=== PATIENT | male | born 2005 | race Caucasian/White ===

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

== ENCOUNTER 2025-03-23 13:16 | Emergency (ER) | payer OTHER, SELFPAY ==
[2025-03-23] MEDS ORDERED: LIDOCAINE 2% W/EPI 1:200,000 MPF 20 ML VIAL IM ONE (13:31)
--- NOTE | 2025-03-23 13:56 | EDPHYS ---
Physician Documentation [facility] Name: Newton Cervantes Age: 19 yrs Sex: Male : 2005 Arrival Date: 03/23/2025 Time: 13:16 Bed 6 Private MD: ED Physician Mir Galarza HPI: 03/23 16:31 This 19 yrs old Male presents to ER via Ambulatory with complaints of Laceration. rt 16:31 Patient presents to the ED with a laceration, reported syncopal event. Patient was rt fishing, the feeling of slipped, cutting his left wrist. At the site of blood, he passed out briefly hitting his head causing laceration just beneath the left eyebrow. Patient denies any ongoing symptoms including headache, dizziness. Denies other acute complaints at this time, symptoms are moderate in severity, no other aggravating or alleviating factors.. Historical: - Allergies: 13:19 PENICILLINS; jl7 - Home Meds: 13:19 None [Active]; jl7 - PMHx: 13:19 None; jl7 - PSHx: 13:19 None; jl7 - Immunization history:: Adult Immunizations unknown. - Infectious Disease History:: Denies. - Social history:: Smoking status: Reported history of juuling and/or vaping. - Family history:: not pertinent. ROS: 16:36 Constitutional: Negative for fever, chills, and weight loss, Cardiovascular: Negative rt for chest pain, palpitations, and edema, Respiratory: Negative for shortness of breath, cough, wheezing, and pleuritic chest pain, Abdomen/GI: Negative for abdominal pain, nausea, vomiting, diarrhea, and constipation, Neuro: Negative for headache, weakness, numbness, tingling, and seizure, 16:36 Skin: Positive for laceration(s), 16:36 Neuro: Positive for syncope, Negative for headache, Exam: 16:36 Constitutional: This is a well developed, well nourished patient who is awake, alert, rt and in no acute distress. Chest/axilla: Normal chest wall appearance and motion. Nontender with no deformity. No lesions are appreciated. Cardiovascular: Regular rate and rhythm with a normal S1 and S2. No gallops, murmurs, or rubs. Normal PMI, no JVD. No pulse deficits. Respiratory: Lungs have equal breath sounds bilaterally, clear to auscultation and percussion. No rales, rhonchi or wheezes noted. No increased work of breathing, no retractions or nasal flaring. Abdomen/GI: Soft, non-tender, with normal bowel sounds. No distension or tympany. No guarding or rebound. No evidence of tenderness throughout. Neuro: Awake and alert, GCS 15, oriented to person, place, time, and situation. Cranial nerves II-XII grossly intact. Motor strength 5/5 in all extremities. Sensory grossly intact. Cerebellar exam normal. Normal gait. 16:36 Head/face: 2 cm laceration horizontally oriented under the left eyebrow, no active bleeding, superficial. 16:36 ECG was reviewed by the Attending Physician. 16:36 Musculoskeletal/extremity: Tiny, less than half centimeter laceration to the left wrist just radial to midline, no active bleeding, appears to be superficial without any deeper structures involved, Rocky test is normal. Vital Signs: 13:18 BP 133 / 59; Pulse 79; Resp 15; Temp 97; Pulse Ox 100% ; Weight 74.84 kg; Height 6 ft. jl7 0 in. ; Pain 0/10; 14:31 BP 111 / 63; Pulse 68; Resp 17; Pulse Ox 99% on R/A; ap3 13:18 Body Mass Index 22.38 (74.84 kg, 182.88 cm) jl7 13:18 Pain Scale: Adult jl7 Laceration: 16:36 Wound Repair of 2cm ( 0.8in ) subcutaneous laceration to Just beneath the left eyebrow. rt Linear shaped.. Distal neuro/vascular/tendon intact. Anesthesia: Wound infiltrated with 2 mls of 1% lidocaine w/ Epi. Wound prep: Copious irrigation. Skin closed with 3 5-0 Prolene using simple sutures and sterile technique. Patient tolerated well. MDM: 13:18 Medical Screening Exam initiated wayne 16:36 Differential Diagnosis Vasovagal syncope, dysrhythmia, laceration. Data reviewed: vital rt signs, nurses notes, EKG. Test considered but Not performed: CT: Discussed getting a CT with the patient, states that he does not wish to have a CT performed. He has his baseline mental status, reportedly only fell from a seated position. Denies any headache.. Counseling: I had a detailed discussion with the patient and/or guardian regarding the historical points, exam findings, and any diagnostic results supporting the discharge/admit diagnosis, the need for outpatient follow up, to return to the emergency department if symptoms worsen or persist or if there are any questions or concerns that arise at home. Response to treatment: the patient's symptoms have markedly improved after treatment. 03/23 13:19 Order name: EKG; Complete Time: 13:19 rt 03/23 13:19 Order name: EKG - Nurse/Tech; Complete Time: 13:38 rt 03/23 13:19 Order name: Dressing - Wound; Complete Time: 14:05 rt 03/23 13:19 Order name: Gloves, Sterile; Complete Time: 13:38 rt 03/23 13:19 Order name: Setup Suture Tray; Complete Time: 13:38 rt EC:36 Rate is 76 beats/min. Rhythm is regular, Normal Sinus Rhythm with No ectopy. QRS [place] rt is Normal. RI interval is normal. QRS interval is normal. QT interval is normal. No Q waves. T waves are Normal. No ST changes noted. Interpreted by me. Administered Medications: 14:06 Drug: Lidocaine-Epinephrine Infiltration -1%: (1:100,000) 5 ml 20 ml Infiltration once; hb to bedside Volume: 20 ml; Route: Infiltration; Disposition Summary: 03/23/25 13:56 Discharge Ordered Notes: Location: Home rt Problem: new rt Symptoms: have improved rt Condition: Stable rt Diagnosis - Vasovagal syncope rt - Facial laceration rt - Laceration of left wrist rt Followup: rt - With: Private Physician - When: 7 - 10 days - Reason: Staple/Suture removal Discharge Instructions: - Discharge Summary Sheet rt - Facial Laceration rt - Syncope rt Forms: - Medication Reconciliation Form rt - Antibiotic Education rt - Prescription Opioid Use rt - Patient Portal Instructions rt - Leadership Thank You Letter rt Prescriptions: - Doxycycline Hyclate 100 mg Oral Tablet - take 1 tablet ORAL route once daily; 10 tablet; Refills: 0, Product Selection rt Permitted Signatures: Sunday Decker MD MD cha Baxter, Heather RN RN Mago Carrasquillo RN RN jl7 Mir Galarza MD MD rt
--- NOTE | 2025-03-23 13:56 | ER ---
Nurse's Notes [facility] Name: Nweton Cervantes Age: 19 yrs Sex: Male : 2005 Arrival Date: 03/23/2025 Time: 13:16 Bed 6 Private MD: Diagnosis: Vasovagal syncope;Facial laceration;Laceration of left wrist Presentation: 03/23 13:18 Chief complaint: EMS states: Toned out for laceration to left eyebrow post fall and jl7 left wrist. Coronavirus screen: At this time, the client does not indicate any symptoms associated with coronavirus-19. Ebola Screen: No symptoms or risks identified at this time. Complicating Factors: There are no complicating factors for this patient. Initial Sepsis Screen: Does the patient meet any 2 criteria? No. Patient's initial sepsis screen is negative. Does the patient have a suspected source of infection? No. Patient's initial sepsis screen is negative. Risk Assessment: Do you want to hurt yourself or someone else? Patient reports no desire to harm self or others. Onset of symptoms was March 23, 2025. 13:18 Method Of Arrival: Ambulatory jl7 13:18 Acuity: VIVIANA 3 jl7 Triage Assessment: 13:19 General: Appears in no apparent distress. uncomfortable, Behavior is calm, cooperative, jl7 appropriate for age. Pain: Denies pain. Injury Description: Laceration sustained to left eye. Historical: - Allergies: 13:19 PENICILLINS; jl7 - Home Meds: 13:19 None [Active]; jl7 - PMHx: 13:19 None; jl7 - PSHx: 13:19 None; jl7 - Immunization history:: Adult Immunizations unknown. - Infectious Disease History:: Denies. - Social history:: Smoking status: Reported history of juuling and/or vaping. - Family history:: not pertinent. Screenin:31 [facility] ED Fall Risk Assessment (Adult) History of falling in the last 3 months, ap3 including since admission Yes- single mechanical fall (1 pt) Confusion or Disorientation No (0 pts) Intoxicated or Sedated No (0 pts) Impaired Gait No (0 pts) Mobility Assist Device Used No (0 pt) Altered Elimination No (0 pt) Score/Fall Risk Level 0 - 2 = Low Risk Oriented to surroundings, Maintained a safe environment, Educated pt \T\ family on fall prevention, incl call for assistance when getting out of bed, Assessed \T\ reinforced patient's understanding of fall precautions, Hourly rounding (assess needs \T\ fall precautionary measures) done, Used ambulatory aids as needed (educated on \T\ assisted with). Abuse screen: Denies threats or abuse. Nutritional screening: No deficits noted. Tuberculosis screening: No symptoms or risk factors identified. Assessment: 14:32 Injury Description: Laceration sustained to left eye and left wrist is. ap3 14:33 Musculoskeletal: Range of motion: intact in all extremities. ap3 Vital Signs: 13:18 BP 133 / 59; Pulse 79; Resp 15; Temp 97; Pulse Ox 100% ; Weight 74.84 kg; Height 6 ft. jl7 0 in. ; Pain 0/10; 14:31 BP 111 / 63; Pulse 68; Resp 17; Pulse Ox 99% on R/A; ap3 13:18 Body Mass Index 22.38 (74.84 kg, 182.88 cm) jl7 13:18 Pain Scale: Adult jl7 ED Course: 13:17 Patient arrived in ED. jl7 13:18 Sunday Decker MD is Attending Physician. wayne 13:18 Attending Physician role handed off by Sunday Decker MD rt 13:18 Mir Galarza MD is Attending Physician. rt 13:19 Triage completed. jl7 13:19 Arm band placed on right wrist. jl7 13:30 EKG done, by ED staff, reviewed by Mir Galarza MD. hb 14:32 No provider procedures requiring assistance completed. Patient did not have IV access ap3 during this emergency room visit. 14:33 Patient has correct armband on for positive identification. Adult w/ patient. Provided ap3 Education on: wound care education . Administered Medications: 14:06 Drug: Lidocaine-Epinephrine Infiltration -1%: (1:100,000) 5 ml 20 ml Infiltration once; hb to bedside Volume: 20 ml; Route: Infiltration; Medication: 14:33 VIS not applicable for this client. ap3 Outcome: 13:56 Discharge ordered by MD. rt 14:32 Discharged to home ambulatory, with family, ap3 14:32 Condition: good 14:32 Discharge instructions given to patient, family, Instructed on discharge instructions, follow up and referral plans. medication usage, Demonstrated understanding of instructions, follow-up care, medications, Prescriptions given X 1, 14:34 Patient left the ED. ap3 Signatures: Sunday Decker MD MD cha Baxter, Heather, RN RN Mago Carrasquillo RN RN jl7 Yany Roberts RN RN ap3 Mir Galarza MD MD rt
[2025-03-23 15:04] VITALS: TEMP 97
[2025-03-23 15:06] VITALS: BP 111/63; O2SAT 99
--- NOTE | 2025-03-26 12:17 | EKG ---
Test Date: 2025-03-23 Test Time: 13:29:35 Solar Panel Installation Supervisor: HB MEASUREMENT RESULTS: Intervals: Rate: 76 CA: 132 QRSD: 88 QT: 364 QTc: 409 [place]: P: 30 CA: 132 QRS: 64 T: 60 INTERPRETIVE STATEMENTS: Normal sinus rhythm Normal ECG No previous ECG available for comparison Electronically Signed On 03-26-25 12:09:43 CDT by Buster Gutierrez
== END 2025-03-23 14:34 | disposition home or self-care (01) ==
LOC: ER 13:16
DX: S01.112A Laceration without foreign body of left eyelid and periocular area, initial encounter (principal); S61.512A Laceration without foreign body of left wrist, initial encounter; R55 Syncope and collapse
CPT/HCPCS: 93005; 99283